=== PATIENT | male | born 1945 | race Caucasian/White ===

== ENCOUNTER 2018-04-15 09:26 | Inpatient (IN) | payer OTHER ==
[~2018-04-15] VITALS: Ht 172.7 cm; Wt 111.0 kg
[~2018-04-15 09:26] MED LIST: ASPIR 8181 M1 PO; Aspirin E.C. PO; CILOSTAZOL100 MG PO; COUMADIN,JANTO7.5 MG PO; COUMADIN2 MG PO; Hydrodiuril,Oretic,E PO; LIPITOR40 MG PO; NORVASC5 MG PO; PRAVACHOL40 MG PO; Percocet 5/325,Endoc PO; Pletal PO; ULTRAM50 MG PO; ZESTRIL,PRINIVI40 MG PO; ZESTRIL40 MG PO
[2018-04-15 10:25] LABS: HEMOGLOBIN 15.5 G/DL (12.5-16.6); MCH 32.7 PG (29.0-34.0); MCHC 35.2 G/DL (30.0-36.0); MCV 92.8 FL (86-99); PLATELET COUNT 145 K/uL (156-360); RBC DIS.WIDTH-CV 13.2 % (11.8-14.6); RBC DIS.WIDTH-SD 44.8 % (39-53); RED BLOOD COUNT 4.74 M/uL (4.00-5.50); WHITE BLOOD COUNT 7.1 K/uL (4.1-10.2)
[2018-04-15 10:42] LABS: INTER. NORMALIZED RATIO 2.8
[2018-04-15 10:45] LABS: PTT 32.8 SEC (25-37)
[2018-04-15 10:57] LABS: CHLORIDE 103 MEQ/L (99-109); GFR ESTIMATE (CALCULATED) > 59 mL/min/ (58.99-99999); GLUCOSE 147 mg/dL (70-99); POTASSIUM 4.3 MEQ/L (3.7-5.4); SODIUM 136 MEQ/L (136-147); UREA NITROGEN (BUN) 12 mg/dL (9-23)
[2018-04-15 13:50] VITALS: BP 119/66
[2018-04-15 16:28] VITALS: BP 122/74
[2018-04-15 19:41] VITALS: BP 112/66
[2018-04-15 23:10] VITALS: BP 137/67
[2018-04-16 04:16] VITALS: BP 125/71
[2018-04-16 07:22] VITALS: BP 125/76
[2018-04-16 07:51] LABS: INTER. NORMALIZED RATIO 2.2
[2018-04-16 07:53] LABS: PTT 34.2 SEC (25-37)
[2018-04-16 11:21] LABS: HEMOGLOBIN A1c (GLYCOHEMOGLOB) 5.6 % (Below 5.7)
[2018-04-16 11:31] VITALS: BP 144/80
[2018-04-16 14:28] LABS: INTER. NORMALIZED RATIO 1.9
[2018-04-16 14:30] LABS: PTT 32.1 SEC (25-37)
[2018-04-16 16:04] VITALS: BP 134/81
[2018-04-16 19:32] LABS: HEMATOCRIT 38.7 % (38.0-50.0); MCH 32.6 PG (29.0-34.0); MCHC 34.4 G/DL (30.0-36.0); MCV 94.9 FL (86-99); PLATELET COUNT 116 K/uL (156-360); RBC DIS.WIDTH-CV 13.2 % (11.8-14.6); RBC DIS.WIDTH-SD 46.3 % (39-53); RED BLOOD COUNT 4.08 M/uL (4.00-5.50); WHITE BLOOD COUNT 8.1 K/uL (4.1-10.2)
[2018-04-16 19:33] LABS: HEMOGLOBIN 13.3 G/DL (12.5-16.6)
[2018-04-16 21:00] VITALS: BP 126/77
[2018-04-16 23:30] VITALS: BP 132/65
[2018-04-17 03:33] VITALS: BP 112/60
[2018-04-17 06:22] LABS: HEMATOCRIT 38.4 % (38.0-50.0); HEMOGLOBIN 13.1 G/DL (12.5-16.6)
[2018-04-17 06:37] LABS: INTER. NORMALIZED RATIO 1.4
[2018-04-17 06:59] LABS: CHLORIDE 103 MEQ/L (99-109); CREATININE 0.8 MG/DL (0.6-1.3); GFR ESTIMATE (CALCULATED) > 59 mL/min/ (58.99-99999); GLUCOSE 135 mg/dL (70-99); POTASSIUM 4.2 MEQ/L (3.7-5.4); SODIUM 137 MEQ/L (136-147); UREA NITROGEN (BUN) 10 mg/dL (9-23)
[2018-04-17 07:19] VITALS: BP 118/67
[2018-04-17 11:53] VITALS: BP 104/57
[2018-04-17 14:01] LABS: INTER. NORMALIZED RATIO 1.4
[2018-04-17 15:48] VITALS: BP 109/57
[2018-04-17 19:37] VITALS: BP 102/58
[2018-04-17 23:19] VITALS: BP 109/63
[2018-04-18 03:55] VITALS: BP 108/58
[2018-04-18 06:39] LABS: HEMATOCRIT 33.4 % (38.0-50.0); HEMOGLOBIN 11.5 G/DL (12.5-16.6); MCV 93.6 FL (86-99)
[2018-04-18 06:52] LABS: INTER. NORMALIZED RATIO 1.4
[2018-04-18 07:25] VITALS: BP 124/66
[2018-04-18] MEDS ORDERED: SENNA PLUS TAB1 EACH PO (08:41)
[2018-04-18] MEDS ORDERED: ENDOCET 5-3251 EACH PO (08:42)
[2018-04-18] MEDS ORDERED: COUMADIN1 MG PO (08:42)
[2018-04-18] MEDS ORDERED: COLACE100 MG PO (14:49)
[2018-04-18] MEDS ORDERED: THERAGRAN1 TABLET PO (14:50)
[2018-04-18] MEDS ORDERED: FLOMAX0.4 MG PO (14:51)
== END 2018-04-18 13:31 | DRG 481 ==
LOC: EME 09:26 → 3EAST 12:34 → EDOF 12:34 → ENRESERV 12:39 → 3EAST 13:50
PROVIDERS: Emergency Medicine; Hospitalist; Orthopaedic Surgery; Physician Assistant Medical
PROC: 0QS736Z Reposition Left Upper Femur with Intramedullary Internal Fixation Device, Percutaneous Approach (ICD-10-PCS; principal; 2018-04-15)
DX: S72.142A Displaced intertrochanteric fracture of left femur, initial encounter for closed fracture (principal); Z79.899 Other long term (current) drug therapy; Z79.01 Long term (current) use of anticoagulants; W01.0XXA Fall on same level from slipping, tripping and stumbling without subsequent striking against object, initial encounter; I47.2 Ventricular tachycardia; I47.1 Supraventricular tachycardia; I10 Essential (primary) hypertension; E78.5 Hyperlipidemia, unspecified; I73.9 Peripheral vascular disease, unspecified; I71.4 Abdominal aortic aneurysm, without rupture; I48.0 Paroxysmal atrial fibrillation; M19.039 Primary osteoarthritis, unspecified wrist; M19.042 Primary osteoarthritis, left hand; N40.0 Benign prostatic hyperplasia without lower urinary tract symptoms
CPT/HCPCS: 71045; 73110; 73130; 73502; 73552; 76000; 80048; 83036; 85014; 85018; 85027; 85610; 85730; 86850; 86900; 86901; 93005; 94799; 97530 GO; 99281; 99285; C1713; J0131; J0330; J0690; J1100; J1170; J2405; J3010; J7030; P9017

== ENCOUNTER 2018-04-18 10:35 | Inpatient (IN) | payer OTHER ==
[~2018-04-18] VITALS: Ht 190.5 cm; Wt 115.9 kg
[~2018-04-18 10:35] MED LIST changes: +COUMADIN1 MG PO; +ENDOCET 5-3251 EACH PO; +SENNA PLUS TAB1 EACH PO
[2018-04-18 13:53] VITALS: BP 126/61
[2018-04-18] MEDS ORDERED: COLACE100 MG PO (14:49)
[2018-04-18] MEDS ORDERED: THERAGRAN1 TABLET PO (14:50)
[2018-04-18] MEDS ORDERED: FLOMAX0.4 MG PO (14:51)
[2018-04-18 15:41] VITALS: BP 116/74
[2018-04-18 16:51] LABS: HEMATOCRIT 36.1 % (38.0-50.0); HEMOGLOBIN 12.5 G/DL (12.5-16.6); MCH 32.3 PG (29.0-34.0); MCHC 34.6 G/DL (30.0-36.0); MCV 93.3 FL (86-99); RBC DIS.WIDTH-CV 13.2 % (11.8-14.6); RED BLOOD COUNT 3.87 M/uL (4.00-5.50); WHITE BLOOD COUNT 7.9 K/uL (4.1-10.2)
[2018-04-18 16:53] LABS: PLATELET COUNT 151 K/uL (156-360)
[2018-04-18 17:17] LABS: ALBUMIN 3.5 G/DL (3.2-4.8); ALKALINE PHOSPHATASE 59 IU/L (3-129); ALT (GPT) 13 IU/L (3-49); AST (GOT) 18 IU/L (2-34); CHLORIDE 99 MEQ/L (99-109); CREATININE 0.8 MG/DL (0.6-1.3); GFR ESTIMATE (CALCULATED) > 59 mL/min/ (58.99-99999); GLUCOSE 109 mg/dL (70-99); POTASSIUM 3.9 MEQ/L (3.7-5.4); SODIUM 136 MEQ/L (136-147); TOTAL BILIRUBIN 0.8 MG/DL (0.0-1.0); TOTAL PROTEIN 5.5 G/DL (6.4-8.3); UREA NITROGEN (BUN) 17 mg/dL (9-23)
[2018-04-19 06:21] LABS: INTER. NORMALIZED RATIO 1.5
[2018-04-19 07:07] VITALS: BP 118/65
[2018-04-19 15:02] VITALS: BP 135/64
[2018-04-20 05:16] VITALS: BP 112/63
[2018-04-20 08:07] LABS: INTER. NORMALIZED RATIO 1.8
[2018-04-20 14:56] VITALS: BP 120/65
[2018-04-21 06:06] VITALS: BP 107/65
[2018-04-21 06:13] LABS: INTER. NORMALIZED RATIO 1.9
[2018-04-21 14:57] VITALS: BP 111/61
[2018-04-22 05:38] VITALS: BP 120/71
[2018-04-22 07:14] LABS: INTER. NORMALIZED RATIO 2.3
[2018-04-22 15:16] VITALS: BP 115/68
[2018-04-23 05:31] VITALS: BP 118/59
[2018-04-23 06:21] LABS: INTER. NORMALIZED RATIO 2.3
[2018-04-23 15:13] VITALS: BP 109/63
[2018-04-24 04:11] VITALS: BP 128/62
[2018-04-24 05:43] LABS: INTER. NORMALIZED RATIO 2.5
[2018-04-24 08:19] VITALS: BP 136/69
[2018-04-24 16:10] VITALS: BP 128/63
[2018-04-25 04:22] VITALS: BP 125/79
[2018-04-25 09:17] LABS: INTER. NORMALIZED RATIO 2.4
[2018-04-25 15:07] VITALS: BP 116/66
[2018-04-26 05:26] VITALS: BP 119/66
[2018-04-26 06:17] LABS: INTER. NORMALIZED RATIO 2.7
[2018-04-26 15:30] VITALS: BP 102/59
[2018-04-27 04:13] VITALS: BP 118/67
[2018-04-27 06:37] LABS: INTER. NORMALIZED RATIO 2.6
[2018-04-27 15:30] VITALS: BP 114/62
[2018-04-28 05:56] VITALS: BP 146/79
[2018-04-28 06:40] LABS: HEMOGLOBIN 12.6 G/DL (12.5-16.6); MCH 31.7 PG (29.0-34.0); MCHC 33.2 G/DL (30.0-36.0); MCV 95.5 FL (86-99); RBC DIS.WIDTH-SD 48.9 % (39-53); RED BLOOD COUNT 3.98 M/uL (4.00-5.50)
[2018-04-28 06:42] LABS: PLATELET COUNT 238 K/uL (156-360)
[2018-04-28 06:46] LABS: INTER. NORMALIZED RATIO 2.6
[2018-04-28 09:00] VITALS: BP 141/81
[2018-04-28 14:26] VITALS: BP 116/56
[2018-04-28] MEDS ORDERED: COUMADIN1 MG PO (21:47)
[2018-04-29 08:37] LABS: INTER. NORMALIZED RATIO 2.7
== END 2018-04-29 13:36 | DRG 560 ==
LOC: 3WEST 10:35 → ENPENDDIS 04-28 → EDPENDDISDT 04-29 → 3WEST 04-29 13:36
PROVIDERS: Physical Medicine & Rehabilitation Pain Medicine; Psychiatry & Neurology Neurology
PROC: F07M0ZZ Range of Motion and Joint Mobility Treatment of Musculoskeletal System - Whole Body (ICD-10-PCS; principal; 2018-04-18)
DX: S72.002D Fracture of unspecified part of neck of left femur, subsequent encounter for closed fracture with routine healing (principal); I10 Essential (primary) hypertension; I73.9 Peripheral vascular disease, unspecified; Z79.01 Long term (current) use of anticoagulants; N40.0 Benign prostatic hyperplasia without lower urinary tract symptoms; K59.03 Drug induced constipation; I47.2 Ventricular tachycardia; I49.9 Cardiac arrhythmia, unspecified; E78.5 Hyperlipidemia, unspecified; Z86.79 Personal history of other diseases of the circulatory system; Z86.718 Personal history of other venous thrombosis and embolism; I71.4 Abdominal aortic aneurysm, without rupture; R26.9 Unspecified abnormalities of gait and mobility; G89.18 Other acute postprocedural pain; I47.1 Supraventricular tachycardia; J98.11 Atelectasis; D62 Acute posthemorrhagic anemia
CPT/HCPCS: 80053; 85027; 85610; 97110 GO; 97530 GP